=== PATIENT | female | born 1995 | race Caucasian/White ===

== ENCOUNTER 2018-07-12 17:01 | Emergency (ER) | payer MEDICAID ==
[~2018-07-12] VITALS: Ht 167.6 cm; Wt 52.5 kg
[2018-07-12 17:06] VITALS: Ht 167.6 cm; Wt 52.5 kg
[2018-07-12] MEDS ORDERED: FAMOTIDINE 20 MG TAB PO ONE (19:30)
[2018-07-12] MEDS ORDERED: DIPHENHYDRAMINE 25 MG CAP PO ONE (19:30)
[2018-07-12] MEDS ORDERED: BEN25 PO (20:06)
[2018-07-12] MEDS ORDERED: FAMO-96 PO (20:06)
[2018-07-12] MEDS ORDERED: SOD CHLORIDE 0.9% 500 ML IV ONE (20:30)
[2018-07-12 20:55] VITALS: BP 113/67; PULSE 73; RESP 18
--- NOTE | 2018-07-12 21:09 | ERD ---
ER Documentation Chief Complaint Chief Complaint Itchy rash spots all over body X 1 day HPI 23-year-old female patient with no significant past medical history presents to ED complaining of an itchy rash started yesterday. Patient reports that she is not sure she is allergic to. States that she has not used any new soaps, detergents. Reports that she has not eaten any new foods or taking any new medications. Denies any wheezing, lip swelling, tongue swelling, abdominal pain, chest pain, shortness breath. ROS All systems reviewed and are negative except as per history of present illness. Medications Home Meds Active Scripts Famotidine* (Pepcid*) 20 Mg Tablet, 20 MG PO BID for 4 Days, TAB Prov:MARCELINO ESTES PA-C 07/12/18 Diphenhydramine Hcl* (Benadryl*) 25 Mg Cap, 25 MG PO Q6 PRN for ITCHING/RASH, #30 TAB Prov:MARCELINO ESTES PA-C 07/12/18 Allergies Allergies: Coded Allergies: No Known Allergy (Unverified , 07/12/18) PMhx/Soc Medical and Surgical Hx: pt denies Medical Hx, pt denies Surgical Hx Hx Alcohol Use: No Hx Substance Use: No Hx Tobacco Use: No Smoking Status: Never smoker Physical Exam Vitals Vital Signs Date Temp Pulse Resp B/P (MAP) Pulse Ox O2 O2 Flow FiO2 Time Delivery Rate 07/12/18 97.7 73 18 113/67 100 Room Air 20:55 (82) 07/12/18 97.7 109 18 137/73 100 17:06 (94) Physical Exam Const: [id number], well-nourished. In no acute distress. Head: Atraumatic, normocephalic Eyes: Normal Conjunctiva without injection. No purulent discharge. PERRL. EOMI ENT: Normal external ear. Ear canal without erythema. Tympanic membrane pearly cagle without effusion or bulging. Nasal canal clear with normal turbinates. Moist oropharynx without tonsillar exudates. Non-erythematous pharynx. Uvula midline. No drooling. No trismus. Neck: Full range of motion. No meningismus. No cervical lymphadenopathy. Resp: Clear to auscultation bilaterally. No wheezing, rhonchi, rales, or crackles. No accessory muscle use. No retractions. Cardio: Regular rate and rhythm. No murmurs, rubs or gallops. Abd: Soft, non tender, non distended. Normal bowel sounds. No palpable masses. No rebound tenderness. No guarding. Skin: No petechiae or rashes Back: No midline tenderness. No CVA tenderness. Ext: No cyanosis, or edema. Neur: Awake and alert. Psych: Normal Mood and Affect Results 24 hrs Current Medications Medications Dose Sig/Arash Start Time Status Last (Trade) Ordered Route PRN Stop Time Admin Dose Reason Admin 25 mg ONCE ONCE 07/12/18 DC 07/12/18 Diphenhydrami PO 19:30 19:20 ne HCl 07/12/18 19:31 (Benadryl) Famotidine 20 mg ONCE ONCE 07/12/18 DC 07/12/18 (Pepcid) PO 19:30 19:21 07/12/18 19:31 Sodium 500 ml @ Q1H ONCE 07/12/18 DC 07/12/18 Chloride 500 mls/hr IV 20:30 20:24 07/12/18 20:57 Procedures/MDM 23-year-old female patient with no significant past medical history presents ED planing of a stressor started yesterday. Patient is afebrile and nontoxic- appearing. Patient was given 500 mL normal saline, famotidine 20 mg, Benadryl 25 mg with improvement of her symptoms. She likely has urticaria, etiology at this time. Low suspicion for anaphylaxis, scabies, SJS/TEN, TSS, Lyme's Disease, syphilis, RMSF, shingles, disseminated gonorrhea chlamydia, DIC, TTP, ITP, erythema multif nathan, sepsis, cellulitis, necrotizing fasciitis, gangrene, meningococcemia, allergic contact dermatitis, urticaria, eczema, tinea infection, or other emergent conditions. Diagnosis: Rash Discharge medications: Famotidine, Benadryl Follow up with primary care physician in 1-2 days. Instructed patient to return to the ED sooner for any worsening symptoms. Patient's questions were answered. Patient is hemodynamically stable. Patient understood and agreed with discharge plan. Patient discharged stable. Disclaimer: Inadvertent spelling and grammatical errors are likely due to EHR/dictation software use and do not reflect on the overall quality of patient care. Also, please note that the electronic time recorded on this note does not necessarily reflect the actual time of the patient encounter. Departure Diagnosis: Primary Impression: Rash Condition: Stable Patient Instructions: Hives Referrals: [facility] YOU HAVE RECEIVED A MEDICAL SCREENING EXAM AND THE RESULTS INDICATE THAT YOU DO NOT HAVE A CONDITION THAT REQUIRES URGENT TREATMENT IN THE EMERGENCY DEPARTMENT. FURTHER EVALUATION AND TREATMENT OF YOUR CONDITION CAN WAIT UNTIL YOU ARE SEEN IN YOUR DOCTORS OFFICE WITHIN THE NEXT 1-2 DAYS. IT IS YOUR RESPONSIBILITY TO MAKE AN APPOINTMENT FOR FOLOW-UP CARE. IF YOU HAVE A PRIMARY DOCTOR --you should call your primary doctor and schedule an appointment IF YOU DO NOT HAVE A PRIMARY DOCTOR YOU CAN CALL OUR PHYSICIAN REFERRAL HOTLINE AT IF YOU CAN NOT AFFORD TO SEE A PHYSICIAN YOU CAN CHOSE FROM THE FOLLOWING [facility] [address] [facility]. [facility] [address] [facility] [place] [address] [facility] [address] [facility] [address] [facility]. [facility] [address] [facility]. [facility] YOU HAVE RECEIVED A MEDICAL SCREENING EXAM AND THE RESULTS INDICATE THAT YOU DO NOT HAVE A CONDITION THAT REQUIRES URGENT TREATMENT IN THE EMERGENCY DEPARTMENT. FURTHER EVALUATION AND TREATMENT OF YOUR CONDITION CAN WAIT UNTIL YOU ARE SEEN IN YOUR DOCTORS OFFICE WITHIN THE NEXT 1-2 DAYS. IT IS YOUR RESPONSIBILITY TO MAKE AN APPOINTMENT FOR FOLOW-UP CARE. IF YOU HAVE A PRIMARY DOCTOR --you should call your primary doctor and schedule and appointment IF YOU DO NOT HAVE A PRIMARY DOCTOR YOU CAN CALL OUR PHYSICIAN REFERRAL HOTLINE AT . IF YOU CAN NOT AFFORD TO SEE A PHYSICIAN YOU CAN CHOSE FROM THE FOLLOWING [facility] INSTITUTIONS: [facility] [address] [place] [address] [facility] [address] [place] [address] [facility] + [facility] [address] [place] [address] [facility] URGENT CARE/SPECIALTIES Additional Instructions: Call your primary care doctor TOMORROW for an appointment during the next 2-3 days for allergy testing.See the doctor sooner or return here if your condition worsens before your appointment time. MARCELINO ESTES PA-C Jul 12, 2018 21:09
== END 2018-07-12 20:57 | disposition home or self-care (01) ==
LOC: FTE 17:01
DX: R21 Rash and other nonspecific skin eruption (principal)
CPT/HCPCS: J7040; Z7610

== ENCOUNTER 2018-07-13 14:16 | Emergency (ER) | payer MEDICAID ==
[~2018-07-13] VITALS: Wt 52.0 kg
[~2018-07-13 14:16] MED LIST: BEN25 PO; FAMO-96 PO
[2018-07-13] MEDS ORDERED: EPINEPHrine 1 MG INJ IM STA (15:26)
[2018-07-13] MEDS ORDERED: predniSONE 20 MG TAB PO ONE (15:30)
[2018-07-13 16:27] VITALS: BP 122/56; PULSE 75; RESP 19
--- NOTE | 2018-07-13 16:40 | ERD ---
ER Documentation Chief Complaint Chief Complaint itchy hives, seen here last night for same, (+home preg test) HPI Patient is a 23-year-old female with no medical problems who presents with a rash. She said that the symptoms started 2 days ago after she ate shrimp the day before. She has hives across all of her body. They got worse today. She was seen yesterday and was given Benadryl and Pepcid. That does help some with the itching. The patient was complaining of itchiness. The patient is a G1, P0. She is with a new diagnosis. She reports no new soaps, lotions, or medications. She has had no tongue or throat swelling or difficulty breathing. She does not have a primary doctor or an OB doctor at this time. ROS All systems reviewed and are negative except as per history of present illness. Medications Home Meds Active Scripts Famotidine* (Pepcid*) 20 Mg Tablet, 20 MG PO BID for 4 Days, TAB Prov:MARCELINO ESTES PA-C 07/12/18 Diphenhydramine Hcl* (Benadryl*) 25 Mg Cap, 25 MG PO Q6 PRN for ITCHING/RASH, #30 TAB Prov:MARCELINO ESTES PA-C 07/12/18 Allergies Allergies: Coded Allergies: No Known Allergy (Unverified , 07/12/18) PMhx/Soc Medical and Surgical Hx: pt denies Medical Hx, pt denies Surgical Hx Hx Alcohol Use: Yes (OCCASIONAL) Hx Substance Use: Yes (MARIJUANA) Hx Tobacco Use: No Smoking Status: Never smoker FmHx Family History: diabetes Physical Exam Vitals Vital Signs Date Temp Pulse Resp B/P (MAP) Pulse Ox O2 O2 Flow FiO2 Time Delivery Rate 07/13/18 98.1 75 19 122/56 100 Room Air 16:27 (78) 07/13/18 98.9 99 20 124/76 99 14:33 (92) Physical Exam Const: No acute distress Head: Atraumatic Eyes: Normal Conjunctiva ENT: Normal External Ears, Nose and Mouth. No oropharyngeal swelling or stridor Neck: Full range of motion. No meningismus. Resp: Clear to auscultation bilaterally Cardio: Regular rate and rhythm, no murmurs Abd: Soft, non tender, non distended. Normal bowel sounds Skin: Diffuse urticaria with blanching Back: No midline or flank tenderness Ext: No cyanosis, or edema Neur: Awake and alert Psych: Normal Mood and Affect Result Diagram: 07/13/18 1531 07/13/18 1531 Results 24 hrs Laboratory Tests Test 07/13/18 15:31 White Blood Count 9.8 10^3/ul Red Blood Count 4.68 10^6/ul Hemoglobin 13.1 g/dl Hematocrit 39.9 % Mean Corpuscular Volume 85.3 fl Mean Corpuscular Hemoglobin 28.0 pg Mean Corpuscular Hemoglobin Concent 32.8 g/dl Red Cell Distribution Width 13.4 % Platelet Count 192 10^3/UL Mean Platelet Volume 11.1 fl Immature Granulocytes % 0.500 % Neutrophils % 87.5 % Lymphocytes % 9.2 % Monocytes % 2.3 % Eosinophils % 0.3 % Basophils % 0.2 % Nucleated Red Blood Cells % 0.0 /100WBC Immature Granulocytes # 0.050 10^3/ul Neutrophils # 8.6 10^3/ul Lymphocytes # 0.9 10^3/ul Monocytes # 0.2 10^3/ul Eosinophils # 0.0 10^3/ul Basophils # 0.0 10^3/ul Nucleated Red Blood Cells # 0.0 10^3/ul Urine Color YELLOW Urine Clarity SLIGHTLY CLOUDY Urine pH 5.0 Urine Specific [place] 1.031 Urine Ketones TRACE mg/dL Urine Nitrite NEGATIVE mg/dL Urine Bilirubin NEGATIVE mg/dL Urine Urobilinogen 1+ mg/dL Urine Leukocyte Esterase NEGATIVE Danny/ul Urine Microscopic RBC 2 /HPF Urine Microscopic WBC 3 /HPF Urine Squamous Epithelial Cells FEW /HPF Urine Mucus FEW /HPF Urine Hemoglobin NEGATIVE mg/dL Urine Glucose 2+ mg/dL Urine Total Protein NEGATIVE mg/dl Sodium Level 137 mmol/L Potassium Level 3.9 mmol/L Chloride Level 106 mmol/L Carbon Dioxide Level 23 mmol/L Anion Gap 8 Blood Urea Nitrogen 11 mg/dl Creatinine 0.63 mg/dl Est Glomerular Filtrat Rate mL/min > 60 mL/min Glucose Level 104 mg/dl Calcium Level 9.4 mg/dl Total Bilirubin 0.4 mg/dl Direct Bilirubin 0.00 mg/dl Indirect Bilirubin 0.4 mg/dl Aspartate Amino Transf (AST/SGOT) 18 IU/L Alanine Aminotransferase (ALT/SGPT) 16 IU/L Alkaline Phosphatase 55 IU/L Total Protein 6.8 g/dl Albumin 3.9 g/dl Globulin 2.90 g/dl Albumin/Globulin Ratio 1.34 Current Medications Medications Dose Sig/Arash Start Time Status Last (Trade) Ordered Route PRN Stop Time Admin Dose Reason Admin Epinephrine 0.3 mg ONCE STAT 07/13/18 DC 07/13/18 IM 15:26 15:36 (EPINEPHrine) 07/13/18 15:28 Prednisone 60 mg ONCE ONCE 07/13/18 DC 07/13/18 (Prednisone) PO 15:30 15:36 07/13/18 15:31 Procedures/MDM Ultrasound of the abdomen shows a 6-week fetus in the uterus per radiology. Patient is a 23-year-old female presents with diffuse urticaria. I believe that she likely has PUPPP. The patient has normal laboratory studies and ultrasound showing an intrauterine . She was given prednisone and epinephrine given her severity of symptoms. She will be given 4 more days of prednisone as well to help with the treatment of the hives and itchiness. She will need to follow-up with Dr. Tariq or the OB doctor of her choice for further care. She can return for any worsening symptoms. There is no airway compromise or swelling at this time. Departure Diagnosis: Primary Impression: PUPPP (pruritic urticarial papules and plaques of ) Additional Impression: Acute urticaria Condition: Fair Patient Instructions: Hives Referrals: RACHEL TARIQ MD Additional Instructions: SPECIALIST: YOU HAVE A MEDICAL CONDITION WHICH REQUIRES YOU TO SEE A SPECIALIST WITHIN THE NEXT 1-2 DAYS. PLEASE FOLLOW UP WITH YOUR PRIMARY PHYSICIAN FOR REFFERAL.IF YOU DO NOT HAVE A PRIMARY CARE PHYSICIAN AND/OR YOU CAN NOT AFFORD TO SEE A PHYSICIAN THE FOLLOWING RESOURCES HAVE BEEN SUPPLIED TO YOU. IT IS YOUR RESPONSIBILITY TO BE SEEN BY THE SPECIALIST SHAWNA PINZON MD Jul 13, 2018 16:40
== END 2018-07-13 16:28 | disposition home or self-care (01) ==
LOC: FTE 14:16
DX: O26.891 Other specified pregnancy related conditions, first trimester (principal); L29.9 Pruritus, unspecified; Z3A.01 Less than 8 weeks gestation of pregnancy
CPT/HCPCS: 76801; 80053; 81001; 84702; 85025; 86592; 86900; 86901; J0171; J7512; 36415; 81003; 96372